=== PATIENT | female | born 2000 | race Caucasian/White ===

== ENCOUNTER → 2024-11-22 06:57 | Outpatient (REF) | payer BC, SELFPAY | LOC: RAD 06:57 | PROVIDERS: ATTENDING PHYSICIAN Physician Assistant | DX: Z00.00 Encounter for general adult medical examination without abnormal findings (principal); K31.84 Gastroparesis; E04.9 Nontoxic goiter, unspecified; R59.0 Localized enlarged lymph nodes | CPT/HCPCS: 76536 ==